=== PATIENT | female | born 1985 ===

== ENCOUNTER 2018-03-23 19:59 | Emergency (ER) | payer SELFPAY | END 2018-03-23 21:24 | disposition home or self-care (01) | LOC: ER 19:59 | DX: S89.92XA Unspecified injury of left lower leg, initial encounter (principal); J44.9 Chronic obstructive pulmonary disease, unspecified; I27.20 Pulmonary hypertension, unspecified; X58.XXXA Exposure to other specified factors, initial encounter; Y93.01 Activity, walking, marching and hiking; Y99.8 Other external cause status; Y92.89 Other specified places as the place of occurrence of the external cause | CPT/HCPCS: 99284 ==

== ENCOUNTER → 2020-05-10 | Outpatient (CLI) | payer OTHER ==
--- NOTE | 2020-05-10 16:46 | RAD ---
EXAM: Pelvic sonogram. HISTORY: IUD migration. TECHNIQUE: Transabdominal and transvaginal sonographic imaging of the pelvis was performed. COMPARISON: 10/31/2019. FINDINGS: The uterus measures 6.9 x 4.6 x 4.9 cm. The endometrial stripe measures 4.7 mm in thickness. There is an intrauterine contraceptive device within the endometrial cavity. The ovaries are normal in size and demonstrate normal blood flow. There are small ovarian follicles. There is no pelvic free fluid. IMPRESSION: 1. IUD within the endometrial cavity. 2. Otherwise, unremarkable pelvic sonogram. Electronically signed by: Renee Cowart MD (05/10/2020 4:43 PM) [id number]
== END | disposition home or self-care (01) ==
LOC: US 15:25
PROVIDERS: ATTEND Obstetrics & Gynecology
DX: Z01.411 Encounter for gynecological examination (general) (routine) with abnormal findings (principal); T83.89XA Other specified complication of genitourinary prosthetic devices, implants and grafts, initial encounter; N83.00 Follicular cyst of ovary, unspecified side; Z20.2 Contact with and (suspected) exposure to infections with a predominantly sexual mode of transmission
CPT/HCPCS: 76830; 76856